=== PATIENT | female | born 1960 | race Caucasian/White ===

== ENCOUNTER → 2020-10-16 10:37 | Outpatient (CLI) | payer OTHER, SELFPAY ==
--- NOTE | ~2020-10-16 | CT_ITS ---
EXAMINATION: CT abdomen pelvis wo/w con DATE: 10/16/2020 11:29 INDICATION: Gross hematuria TECHNIQUE: Computed tomography (CT) of the abdomen and pelvis was performed without and with 130 cc O mnipaque 350 intravenous contrast. The dose-length product was 1015.41 mGy-cm. Automated exposure con trol and iterative reconstruction technique were employed. COMPARISON: None. FINDINGS: Lung bases are unremarkable. No significant pleural or pericardial effusion. There is mild atherosclerosis. No renal stones or hydronephrosis. Gallbladder is present. Small fat-containing umbi lical hernia. Gallbladder is present. Nonobstructive bowel gas pattern. The liver, spleen, pancreas, adrenal glands and kidneys are unremarkable. Ureters are normal in cours e and caliber. Right ureteral jet identified. Bladder is unremarkable. No osteolytic or osteoblastic lesions. No evidence for spondylolisthesis. No lymphadenopathy. IMPRESSION: 1. No acute abnormality. No findings to account for hematuria. Reviewed, dictated and finalized at location B. NG CLOTH CUTTER
--- NOTE | ~2020-10-16 | XR_ITS ---
XR abdomen/kub 1V 10/16/2020 11:28 Indication: Gross hematuria Procedure: KUB Comparison: No prior studies for comparison. Findings: Bowel gas pattern is nonobstructive. There is radiodensity in the left mid abdomen, likely bowel content. No definite renal stones. Moderate colonic fecal loading. No acute osseous abnormality . Impression: 1: No acute abdominal abnormality. Reviewed, dictated and finalized at location B. GER TESTER Impression: 1: No acute abdominal abnormality.
[2020-10-16 11:02] LABS: Estimated Glomerular Filt Rate > 60
== END ==
PROVIDERS: Visit Provider Urology
DX: R31.0 Gross hematuria (principal)
CPT/HCPCS: 74018; 74178; Q9967